=== PATIENT | female | born 1955 | race African-American/Black ===

== ENCOUNTER 2019-03-26 14:26 | Emergency (ER) | payer OTHER ==
[~2019-03-26] VITALS: Ht 160 cm; Wt 78.9 kg
[2019-03-26 14:31] VITALS: Ht 160 cm; Wt 78.9 kg
[2019-03-26 14:51] LABS: microscopic required? YES; urine erythrocyte TRACE (NEGATIVE)
[2019-03-26 15:04] LABS: CALCIUM 9.6 mg/dL (8.5-10.1); CARBON DIOXIDE 29.7 mmol/L (21-32); POTASSIUM SERUM 3.2 mmol/L (3.5-5.1)
[2019-03-26 15:09] LABS: ALBUMIN 4.2 g/dL (3.4-5.0); BILIRUBIN TOTAL 0.4 mg/dL (0.20-1.00); TOTAL PROTEIN, SERUM 7.9 g/dL (6.4-8.2)
[2019-03-26 18:38] VITALS: BP 154/89
== END 2019-03-26 18:38 | disposition home or self-care (01) ==
LOC: ED 14:26
DX: E11.65 Type 2 diabetes mellitus with hyperglycemia (principal); E87.6 Hypokalemia; E78.00 Pure hypercholesterolemia, unspecified; I10 Essential (primary) hypertension; Z91.19 Patient's noncompliance with other medical treatment and regimen
CPT/HCPCS: J7030